=== PATIENT | male | born 1985 | race Caucasian/White ===

== ENCOUNTER 2018-08-06 20:20 | Emergency (ER) | payer OTHER ==
[2018-08-06] MEDS ORDERED: NS 1,000 ML IV ONE ×2 (20:33→22:15)
--- NOTE | 2018-08-06 20:35 | EDPHY ---
H & P Time Seen by Provider: 08/06/18 20:30 HPI/ROS: CHIEF COMPLAINT: Fever, chills, nausea, vomiting, right posterior leg pain, abdominal pain HISTORY OF PRESENT ILLNESS: Patient presents to the ED with a confusion constellation of symptoms. Approximately 5 days ago he developed some pain behind his right knee. He had this evaluated with an ultrasound which demonstrated no evidence of a DV T. The patient has had some progressive pain in the right leg which has radiated to the right groin. Today the patient developed fever, shaking chills and vomiting. The patient now complains of generalized abdominal discomfort. He denies any cough, congestion or respiratory symptoms. The patient does endorse symptoms of fatigue and malaise. He denies any history of fall or trauma. The patient denies significant past medical history. REVIEW OF SYSTEMS: A comprehensive 10 point review of systems is otherwise negative aside from elements mentioned in the history of present illness. Source: Patient Exam Limitations: No limitations - Medical/Surgical History Other PMH: Past medical history: Noncontributory - Physical Exam Exam: General Appearance: Pale, diaphoretic, appears uncomfortable Eyes: Pupils equal and round no pallor or injection ENT, Mouth: Mucous membranes moist Respiratory: There are no retractions, lungs are clear to auscultation Cardiovascular: Regular rate and rhythm Gastrointestinal: Generalized abdominal tenderness, greatest in the left lower quadrant Neurological: A&O, normal motor function, normal sensory exam, normal cranial nerves Skin: Warm and dry, no rashes Musculoskeletal: Neck is supple nontender Extremities: No clinical evidence of septic arthritis Psychiatric: Patient is oriented X 3, there is no agitation Constitutional: Initial Vital Signs Temperature (C) 37.5 C 08/06/18 20:32 Heart Rate 82 08/06/18 20:32 Respiratory Rate 15 08/06/18 20:32 Blood Pressure 121/65 H 08/06/18 20:32 O2 Sat (%) 99 08/06/18 20:32 O2 Delivery Mode Room Air Allergies/Adverse Reactions: amoxicillin Allergy (Verified 08/06/18 21:00) Penicillins Allergy (Unverified 08/06/18 20:37) Home Medications: Medication Instructions Recorded NK [No Known Home Meds] 08/06/18 Medical Decision Making - Diagnostics EKG Interpretation: EKG: Complete interpretation has been separately recorded in the [facility] archive. Summary impression: Sinus rhythm, rate 70 Imaging Results: Imaging Impressions Abdomen CT 08/06/18 20:46 Impression: Normal CT scan of the abdomen and pelvis. Findings and recommendations discussed with Clyde Mcgraw M.D., at 9:35 p.m. on August 06, 2018. Final report concurs with initial preliminary interpretation. E:amm ED Course/Re-evaluation: The patient presents to the ED with multiple complaints of uncertain significance. The patient has had some vague pain behind his right knee evaluated by ultrasound which was negative for DVT. Over the past day he has developed fever, chills, retching and increasing abdominal pain. The patient arrived to the emergency department and appeared quite uncomfortable. His vital signs are stable. The patient had an IV established. The patient was noted to have a significant [place] [id number]. Patient's venous lactate is reassuring at 1.7. The remainder of the patient's electrolytes and metabolic panel are unremarkable. The patient was taken for CT scan of the abdomen pelvis which demonstrated no evidence of acute pathology and only suggested mild constipation. The patient received 2 L of normal saline, IV Zofran and was observed in the emergency department. I re-evaluated the patient at 10:15 p.m.. He is feeling much better. I suspect did his leg symptoms are unrelated to what is going on for many intestinal standpoint. He presents to the ED tonight with symptoms suggestive a severe gastroenteritis. At this point time he is feeling significantly better. I find his abdominal examination to be markedly improved. The patient will be discharged home with a prescription for Zofran. He is given customary aftercare instructions and return precautions. Differential Diagnosis: Differential diagnosis considered includes appendicitis, diverticulitis, perforation, abscess, mesenteric adenitis, urinary tract infection, pyelonephritis, septic arthritis, bacteremia - Data Points Laboratory Results: Laboratory Results 08/06/18 20:32 08/06/18 20:32 08/06/18 08/06/18 08/06/18 22:15 20:57 20:38 WBC RBC Hgb POC Hgb 16.7 gm/dL gm/dL (13.7-17.5) Hct POC Hct 49 % % (40-51) MCV MCH MCHC RDW Plt Count MPV Neut % (Auto) Lymph % (Auto) [place] % (Auto) Eos % (Auto) Baso % (Auto) Nucleat RBC Rel Count Absolute Neuts (auto) Absolute Lymphs (auto) Absolute Monos (auto) Absolute Eos (auto) Absolute Basos (auto) Absolute Nucleated RBC Immature Gran % Immature Gran # VBG Lactic Acid 1.7 mmol/L mmol/L (0.7-2.1) POC Sodium 140 mEq/L mEq/L (135-145) Sodium POC Potassium 3.5 mEq/L mEq/L (3.3-5.0) Potassium POC Chloride 105 mEq/L mEq/L (97-110) Chloride Carbon Dioxide Anion Gap POC BUN 15 mg/dL mg/dL (7-23) BUN Creatinine POC Creatinine 1.0 mg/dL mg/dL (0.7-1.3) Estimated GFR Glucose POC Glucose 125 mg/dL H mg/dL (70-100) Calcium Total Bilirubin Conjugated Bilirubin Unconjugated Bilirubin AST ALT Alkaline Phosphatase Total Protein Albumin Lipase Urine Color YELLOW Urine Appearance HAZY Urine pH 7.0 (5.0-7.5) Ur Specific [place] > 1.035 H (1.002-1.030) Urine Protein NEGATIVE (NEGATIVE) Urine Ketones NEGATIVE (NEGATIVE) Urine Blood 1+ H (NEGATIVE) Urine Nitrate NEGATIVE (NEGATIVE) Urine Bilirubin NEGATIVE (NEGATIVE) Urine Urobilinogen NEGATIVE EU EU (0.2-1.0) Ur Leukocyte Esterase NEGATIVE (NEGATIVE) Urine RBC Pending Urine WBC Pending Ur Epithelial Cells Pending Urine Glucose NEGATIVE (NEGATIVE) 08/06/18 08/06/18 20:32 20:32 WBC 15.29 10^3/uL H 10^3/uL (3.80-9.50) RBC 5.14 10^6/uL 10^6/uL (4.40-6.38) Hgb 16.0 g/dL g/dL (13.7-17.5) POC Hgb Hct 44.9 % % (40.0-51.0) POC Hct MCV 87.4 fL fL (81.5-99.8) MCH 31.1 pg pg (27.9-34.1) MCHC 35.6 g/dL g/dL (32.4-36.7) RDW 13.1 % % (11.5-15.2) Plt Count 304 10^3/uL 10^3/uL (150-400) MPV 10.0 fL fL (8.7-11.7) Neut % (Auto) 85.2 % H % (39.3-74.2) Lymph % (Auto) 9.3 % L % (15.0-45.0) [place] % (Auto) 4.9 % % (4.5-13.0) Eos % (Auto) 0.1 % L % (0.6-7.6) Baso % (Auto) 0.2 % L % (0.3-1.7) Nucleat RBC Rel Count 0.0 % % (0.0-0.2) Absolute Neuts (auto) 13.03 10^3/uL H 10^3/uL (1.70-6.50) Absolute Lymphs (auto) 1.42 10^3/uL 10^3/uL (1.00-3.00) Absolute Monos (auto) 0.75 10^3/uL 10^3/uL (0.30-0.80) Absolute Eos (auto) 0.01 10^3/uL L 10^3/uL (0.03-0.40) Absolute Basos (auto) 0.03 10^3/uL 10^3/uL (0.02-0.10) Absolute Nucleated RBC 0.00 10^3/uL 10^3/uL (0-0.01) Immature Gran % 0.3 % % (0.0-1.1) Immature Gran # 0.05 10^3/uL 10^3/uL (0.00-0.10) VBG Lactic Acid POC Sodium Sodium 137 mEq/L mEq/L (135-145) POC Potassium Potassium 3.8 mEq/L mEq/L (3.3-5.0) POC Chloride Chloride 103 mEq/L mEq/L (97-110) Carbon Dioxide 24 mEq/l mEq/l (22-31) Anion Gap 10 mEq/L mEq/L (8-16) POC BUN BUN 16 mg/dL mg/dL (7-23) Creatinine 0.9 mg/dL mg/dL (0.7-1.3) POC Creatinine Estimated GFR > 60 Glucose 123 mg/dL H mg/dL (70-100) POC Glucose Calcium 9.6 mg/dL mg/dL (8.5-10.4) Total Bilirubin 1.0 mg/dL mg/dL (0.1-1.4) Conjugated Bilirubin 0.1 mg/dL mg/dL (0.0-0.5) Unconjugated Bilirubin 0.9 mg/dL mg/dL (0.0-1.1) AST 38 IU/L IU/L (17-59) ALT 51 IU/L IU/L (21-72) Alkaline Phosphatase 76 IU/L IU/L (38-126) Total Protein 6.8 g/dL g/dL (6.3-8.2) Albumin 4.3 g/dL g/dL (3.5-5.0) Lipase 143 IU/L IU/L (23-300) Urine Color Urine Appearance Urine pH Ur Specific [place] Urine Protein Urine Ketones Urine Blood Urine Nitrate Urine Bilirubin Urine Urobilinogen Ur Leukocyte Esterase Urine RBC Urine WBC Ur Epithelial Cells Urine Glucose Medications Given: Discontinued Medications Sodium Chloride (Ns) 1,000 mls @ 0 mls/hr IV EDNOW ONE; Wide Open PRN Reason: Protocol Stop: 08/06/18 20:34 Last Admin: 08/06/18 20:37 Dose: 1,000 mls Sodium Chloride (Ns) 1,000 mls @ 0 mls/hr IV EDNOW ONE; Wide Open PRN Reason: Protocol Stop: 08/06/18 22:16 Last Admin: 08/06/18 22:22 Dose: 1,000 mls Point of Care Test Results: Chemistry 08/06/18 20:38 POC Sodium 140 mEq/L mEq/L (135-145) POC Potassium 3.5 mEq/L mEq/L (3.3-5.0) POC Chloride 105 mEq/L mEq/L (97-110) POC BUN 15 mg/dL mg/dL (7-23) POC Creatinine 1.0 mg/dL mg/dL (0.7-1.3) POC Glucose 125 mg/dL H mg/dL (70-100) ISTAT H&H 08/06/18 20:38 POC Hgb 16.7 gm/dL gm/dL (13.7-17.5) POC Hct 49 % % (40-51) Departure - Departure Disposition: Home, Routine, Self-Care Clinical Impression: Acute abdominal pain, Vomiting Condition: Good Instructions: Ondansetron (By mouth), Abdominal Pain (ED) Additional Instructions: Sometimes we are unable to diagnose an obvious cause of abdominal pain in the Emergency Department. Based upon our evaluation today, I believe the cause of your symptoms are most likely secondary to a viral intestinal infection. Because more serious conditions can be difficult to diagnose early in the course of their presentation, we ask that you return to the Emergency Department in 8-12 hours for a recheck if you are still having pain. This is necessary to exclude the development of a more serious condition such as appendicitis or other intra-abdominal emergency. In the event your pain markedly increases before that time or you develop intractable vomiting or fever return to the Emergency Department immediately. Herbert as needed for nausea Referrals: [facility] [Other] - As per Instructions
[2018-08-06 20:41] LABS: PLATELET COUNT 304 10^3/uL (150-400)
[2018-08-06] MEDS ORDERED: IOPAMIDOL (ISOVUE-300) 100 ML BTL ONE (20:49)
--- NOTE | 2018-08-06 20:58 | CPEKG ---
Test Reason : OPEN Blood Pressure : / mmHG Vent. Rate : 070 BPM Atrial Rate : 070 BPM P-R Int : 156 ms QRS Dur : 089 ms QT Int : 383 ms P-R-T Axes : 066 081 063 degrees QTc Int : [address] elev, probable normal early repol pattern Confirmed by Clyde Mcgraw ([id number]) on 08/06/2018 8:57:41 PM Referred By: Confirmed By:Clyde Mcgraw
[2018-08-06] MEDS ORDERED: ONDANSETRON 4MG PREPACK#2 BTL TAKEHOME ONE (22:17)
[2018-08-06 23:01] VITALS: BP 112/73
== END 2018-08-06 23:00 | disposition home or self-care (01) ==
DX: R10.32 Left lower quadrant pain (principal); R50.9 Fever, unspecified; R11.2 Nausea with vomiting, unspecified; E86.9 Volume depletion, unspecified
CPT/HCPCS: 82435-PO; 82565-PO; 82947-PO; 84132-PO; 84295-PO; 84520-PO; 85014-PO; Q9967